=== PATIENT | male | born 1980 | race Caucasian/White ===

== ENCOUNTER 2017-12-03 21:58 | Observation (INO) | payer MEDICAID, OTHER ==
[~2017-12-03] VITALS: Ht 175.3 cm; Wt 77.8 kg
[2017-12-03 23:15] LABS: BASOPHILS # (AUTO) 0.04 x10^3/uL (0-0.1); BASOPHILS % (AUTO) 1 % (0-1); EOSINOPHILS # (AUTO) 0.17 x10^3/uL (0-0.4); EOSINOPHILS % (AUTO) 3 % (1-7); LYMPHOCYTES # (AUTO) 2.32 x10^3/uL (1-3.4); LYMPHOCYTES % (AUTO) 39 % (22-44); MD NO; MEAN CORPUSCULAR HEMOGLOBIN 32.1 pg (27.5-34.5); MEAN CORPUSCULAR HGB CONC 34.8 g/dL (33.2-36.2); MEAN CORPUSCULAR VOLUME 92.3 fL (81-97); MONOCYTES # (AUTO) 0.37 x10^3/uL (0.2-0.8); MONOCYTES % (AUTO) 6 % (2-9); NEUTROPHILS # (AUTO) 3.04 x10^3/uL (1.8-6.8); NEUTROPHILS % (AUTO) 51 % (42-75); PLATELET COUNT 280 x10^3/uL (130-400); RED BLOOD COUNT 4.85 x10^6/uL (4.38-5.82); RED CELL DISTRIBUTION WIDTH 14.8 % (9.4-14.8)
[2017-12-03 23:27] LABS: ALANINE AMINOTRANSFERASE 22 U/L (12-78); ALBUMIN 3.3 g/dL (3.4-5.0); ANION GAP 9 mmol/L (5-15); CALCIUM 7.7 mg/dL (8.5-10.1); CHLORIDE 113 mmol/L (98-107); CREATININE 0.86 mg/dL (0.7-1.3)
[2017-12-03 23:29] LABS: ALKALINE PHOSPHATASE 84 U/L (45-117); BILIRUBIN,TOTAL 0.2 mg/dL (0.2-1.0); TOTAL PROTEIN 6.4 g/dL (6.4-8.2)
[2017-12-04] MEDS ORDERED: ZIPRASIDONE 20 MG INJ IM ONE ×4 (00:39→22:00)
[2017-12-04 01:30] LABS: ACETAMINOPHEN < 2 mcg/mL (10-30); SALICYLATE LEVEL 4.3 mg/dL (2.8-20.0)
[2017-12-04 02:16] LABS: AMPHETAMINE SCREEN, URINE Positive (Negative); BARBITURATE SCREEN, URINE Negative (Negative); BENZODIAZEPINE SCREEN, URINE Negative (Negative); CANNABINOID SCREEN, URINE Negative (Negative); COCAINE SCREEN, URINE Negative (Negative); METHADONE SCREEN, URINE Negative (Negative); OPIATE SCREEN, URINE Negative (Negative)
[2017-12-04] MEDS ORDERED: LORazepam 1MG TABLET ONE (11:30)
[2017-12-04] MEDS ORDERED: LORazepam 1MG TABLET PO ONE (11:30)
[2017-12-05] MEDS ORDERED: LORazepam 1MG TABLET ONE ×2 (06:14→18:37)
[2017-12-05] MEDS ORDERED: LORazepam 1MG TABLET PO ONE (06:30)
[2017-12-05] MEDS ORDERED: ZIPRASIDONE 20 MG INJ IM ONE ×4 (12:55→22:30)
[2017-12-05] MEDS ORDERED: FAMOTIDINE 20 MG TABLET ONE (18:37)
[2017-12-05] MEDS: FAMOTIDINE 20 MG TABLET PO SCH (18:46)
[2017-12-05] MEDS: LORazepam 1MG TABLET PO PRN (18:46)
[2017-12-06] MEDS ORDERED: LORazepam 1MG TABLET ONE ×2 (07:03→12:50)
[2017-12-06] MEDS: LORazepam 1MG TABLET PO PRN ×2 (07:06→12:58)
[2017-12-06] MEDS ORDERED: FAMOTIDINE 20 MG TABLET ONE (12:49)
[2017-12-06] MEDS: FAMOTIDINE 20 MG TABLET PO SCH ×2 (12:58→21:00)
[2017-12-06] MEDS ORDERED: ZIPRASIDONE 20MG CAPSULE ONE (16:51)
[2017-12-06] MEDS ORDERED: ZIPRASIDONE 20MG CAPSULE PO SCH ×2 (17:00→21:00)
[2017-12-07] MEDS: OLANZAPINE 10 MG INJ IM PRN ×2 (01:01→18:31)
[2017-12-07] MEDS ORDERED: LORazepam 1MG TABLET ONE ×4 (01:03→16:58)
[2017-12-07] MEDS ORDERED: LORazepam 1MG TABLET PO ONE ×3 (01:30→17:00)
[2017-12-07] MEDS ORDERED: ZIPRASIDONE 20MG CAPSULE PO SCH (07:00)
[2017-12-07] MEDS ORDERED: FAMOTIDINE 20 MG TABLET ONE (09:12)
[2017-12-07] MEDS: FAMOTIDINE 20 MG TABLET PO SCH ×2 (09:24→21:00)
[2017-12-07] MEDS ORDERED: ZIPRASIDONE 20MG CAPSULE PO STA (21:30)
[2017-12-07] MEDS ORDERED: ZIPRASIDONE 20MG CAPSULE ONE (21:50)
[2017-12-08] MEDS ORDERED: FAMOTIDINE 20 MG TABLET ONE ×2 (08:39→20:34)
[2017-12-08] MEDS ORDERED: LORazepam 1MG TABLET ONE ×3 (08:42→23:49)
[2017-12-08] MEDS: FAMOTIDINE 20 MG TABLET PO SCH ×2 (08:51→20:58)
[2017-12-08] MEDS ORDERED: LORazepam 1MG TABLET PO ONE ×2 (09:00→17:00)
[2017-12-08] MEDS ORDERED: OLANZAPINE 10 MG INJ IM ONE (11:00)
[2017-12-08] MEDS ORDERED: ZIPRASIDONE 20 MG INJ IM ONE ×2 (15:30→19:34)
[2017-12-08] MEDS ORDERED: HALOPERIDOL 5 MG/ML IM PRN (20:30)
[2017-12-08] MEDS ORDERED: NICOTINE 14MG/24 HR PATCH.TD24 ONE (20:33)
[2017-12-08] MEDS: OLANZAPINE 5 MG TABLET PO SCH (20:49)
[2017-12-08] MEDS: NICOTINE 14MG/24 HR PATCH.TD24 TD SCH (20:58)
[2017-12-08] MEDS: LORazepam 1MG TABLET PO PRN (23:51)
[2017-12-09] MEDS ORDERED: FAMOTIDINE 20 MG TABLET ONE ×2 (08:40→20:32)
[2017-12-09] MEDS ORDERED: LORazepam 1MG TABLET ONE ×3 (08:41→18:20)
[2017-12-09] MEDS: OLANZAPINE 5 MG TABLET PO SCH ×2 (08:57→20:50)
[2017-12-09] MEDS: FAMOTIDINE 20 MG TABLET PO SCH ×2 (08:57→20:42)
[2017-12-09] MEDS: LORazepam 1MG TABLET PO PRN ×3 (08:58→18:20)
[2017-12-09] MEDS ORDERED: LORazepam 1MG TABLET PO ONE (09:30)
[2017-12-09] MEDS ORDERED: IBUPROFEN 800 MG TABLET PO STA (19:21)
[2017-12-09] MEDS ORDERED: IBUPROFEN 800 MG TABLET ONE (19:22)
[2017-12-09] MEDS ORDERED: OLANZAPINE 5 MG TABLET ONE (20:32)
[2017-12-09] MEDS ORDERED: NICOTINE 14MG/24 HR PATCH.TD24 ONE (20:32)
[2017-12-09] MEDS: NICOTINE 14MG/24 HR PATCH.TD24 TD SCH (20:42)
[2017-12-09] MEDS: OLANZAPINE 10 MG INJ IM PRN (21:15)
[2017-12-09] MEDS ORDERED: LORazepam 2 MG/ML, 1ML ONE (23:41)
[2017-12-09] MEDS: LORazepam 2 MG/ML, 1ML IM PRN (23:45)
[2017-12-10] MEDS ORDERED: ONDANSETRON ODT 4 MG PO PRN (05:30)
[2017-12-10] MEDS ORDERED: ACETAMINOPHEN 325 MG TABLET PO PRN (05:30)
[2017-12-10] MEDS: LORazepam 1MG TABLET PO PRN (05:47)
[2017-12-10 05:59] VITALS: BP 127/85
[2017-12-10 07:30] VITALS: BP 138/95
[2017-12-10] MEDS: FAMOTIDINE 20 MG TABLET PO SCH ×2 (08:01→20:06)
[2017-12-10] MEDS: OLANZAPINE 5 MG TABLET PO SCH (08:01)
[2017-12-10 09:32] VITALS: BP 133/91
[2017-12-10] MEDS ORDERED: ZIPRASIDONE 20MG CAPSULE ONE (09:34)
[2017-12-10] MEDS: ZIPRASIDONE 20MG CAPSULE PO SCH ×2 (09:38→20:06)
[2017-12-10] MEDS: LORazepam 2 MG/ML, 1ML IM PRN ×3 (09:38→20:21)
[2017-12-10 10:32] VITALS: BP 141/94
[2017-12-10 14:50] VITALS: BP 137/95
[2017-12-10 19:32] VITALS: BP 142/94
[2017-12-10] MEDS: NICOTINE 14MG/24 HR PATCH.TD24 TD SCH (20:09)
[2017-12-11 07:39] VITALS: BP 136/89
[2017-12-11] MEDS: FAMOTIDINE 20 MG TABLET PO SCH (08:13)
[2017-12-11] MEDS: ZIPRASIDONE 20MG CAPSULE PO SCH (08:13)
== END 2017-12-11 12:32 | disposition home or self-care (01) ==
LOC: ED 23:59 → EDIP 12-06 08:58 → 3E 12-10 05:19
PROVIDERS: ADMIT Internal Medicine; ATTEND Hospitalist
DX: F29 Unspecified psychosis not due to a substance or known physiological condition (principal); F10.120 Alcohol abuse with intoxication, uncomplicated; F41.9 Anxiety disorder, unspecified; R45.850 Homicidal ideations; F17.210 Nicotine dependence, cigarettes, uncomplicated; Z59.0 Homelessness
CPT/HCPCS: 36415; 80053; 80307; 80329; 83690; 85025; 93005; 96372; 99285; G0378; J2060; J3486; G0480